=== PATIENT | female | born 1930 | race Caucasian/White ===

== ENCOUNTER 2017-06-03 20:50 | Emergency (ER) | payer MEDICARE, OTHER ==
[2017-06-03 21:18] VITALS: BMI 27.6
[2017-06-03 21:35] VITALS: TEMP 98.4
--- NOTE | 2017-06-03 21:46 | ED PDOC ---
Arrival/HPI - General Chief Complaint: Back Pain Time Seen by Provider: 06/03/17 21:13 Historian: Patient, Family (Translated) - History of Present Illness Narrative History of Present Illness (Text): 06/03/17 21:44 86 year old female, whose past medical history includes hypertension, hyperlipidemia, breast cancer s/p mastectomy, thyroidectomy, and GERD, presents to the emergency department complaining of right lower back pain radiating to the right buttocks that began last week and worsen today. Patient states that these pains occur every year and pain worsens when walking. Patient states to have dysuria, but denies any trauma, fever, chills, chest pain, shortness of breath, nausea, vomiting, diarrhea, neck pain, headache, dizziness, or any other complaints. PMD: Dr. Gomez Time/Duration: 1 week Symptom Onset: Gradual Symptom Course: Worsening Activities at Onset: Light Context: Home Past Medical History - Provider Review Nursing Documentation Reviewed: Yes - Infectious Disease Hx of Infectious Diseases: None - Tetanus Immunization Tetanus Immunization: >10 years Ago - Reproductive Menopause: Yes - Cardiac Hx Cardiac Disorders: Yes Hx Hypertension: Yes Hx Peripheral Edema: Yes - Renal Hx Kidney Stones: Yes - Endocrine/Metabolic Hx Hypothyroidism: Yes Other/Comment: thyroidectomy - Hematological/Oncological Hx Cancer: Yes (breast left mastectomy 1999) Hx Chemotherapy: Yes - Integumentary Other/Comment: right forearm redness warmth swelling - Musculoskeletal/Rheumatological Hx Arthritis: Yes Hx Falls: No - Gastrointestinal Hx Gastroesophageal Reflux: Yes - Psychiatric Hx Depression: No Hx Emotional Abuse: No Hx Physical Abuse: No Hx Substance Use: No - Surgical History Hx Cardiac Catheterization: Yes Hx Mastectomy: Yes (left) Hx Thyroidectomy: Yes - Anesthesia Hx Anesthesia: Yes Hx Anesthesia Reactions: No Hx Malignant Hyperthermia: No - Suicidal Assessment Feels Threatened In Home Enviroment: No Family/Social History - Physician Review Nursing Documentation Reviewed: Yes Family/Social History: No Known Family HX Smoking Status: Never Smoked Hx Alcohol Use: No Hx Substance Use: No Hx Substance Use Treatment: No Allergies/Home Meds Allergies/Adverse Reactions: Allergies No Known Allergies Allergy (Verified 02/23/12 17:46) Home Medications: Home Meds Medication Instructions Recorded Confirmed Aspirin [Aspir 81] 81 mg PO DAILY 02/23/12 02/15/16 Clopidogrel Bisulfate [Plavix] 75 mg PO DAILY 02/15/16 02/15/16 Fenofibrate [Tricor] 145 mg PO DAILY 02/15/16 02/15/16 Furosemide [Lasix] 40 mg PO DAILY 02/15/16 02/15/16 Levothyroxine Sodium [Unithroid] 88 mcg PO DAILY 02/15/16 02/15/16 Lisinopril/Hydrochlorothiazide 1 tab PO DAILY 02/15/16 02/15/16 [Lisinopril-Hctz 20-25 mg Tab] Propranolol [Inderal] 20 mg PO DAILY 02/15/16 02/15/16 Simvastatin 20 mg PO DAILY 02/15/16 02/15/16 amLODIPine [Norvasc] 10 mg PO DAILY 02/15/16 02/15/16 Review of Systems - Physician Review All systems were reviewed & negative as marked: Yes - Review of Systems Constitutional: absent: Fevers, Other (Chills) Respiratory: absent: SOB Cardiovascular: absent: Chest Pain Gastrointestinal: absent: Diarrhea, Nausea, Vomiting Genitourinary Female: Dysuria (Dysuria for a year). absent: Frequency, Hematuria Musculoskeletal: Back Pain (Right lower back pain radiating to the right buttocks). absent: Neck Pain Neurological: absent: Headache, Dizziness Physical Exam Vital Signs Reviewed: Yes Vital Signs Temp Pulse Resp BP Pulse Ox 06/03/17 21:32 98.4 F 65 18 171/79 H 97 Temperature: Afebrile Blood Pressure: Hypertensive Pulse: Regular Respiratory Rate: Normal Appearance: Positive for: Well-Appearing, Non-Toxic, Comfortable Pain Distress: None Mental Status: Positive for: Alert and Oriented X 3 - Systems Exam Head: Present: Atraumatic, Normocephalic Pupils: Present: PERRL Extroacular Muscles: Present: EOMI Conjunctiva: Present: Normal Mouth: Present: Moist Mucous Membranes Neck: Present: Normal Range of Motion, MIDLINE TENDERNESS Respiratory/Chest: Present: Clear to Auscultation, Good Air Exchange. No: Respiratory Distress, Accessory Muscle Use Cardiovascular: Present: Regular Rate and Rhythm, Normal S1, S2. No: Murmurs Abdomen: Present: Normal Bowel Sounds. No: Tenderness, Distention, Peritoneal Signs Back: Present: Pain with Leg Raise (+ Right straight leg raise), Other (Right buttocks tenderness ). No: Midline Tenderness, Paraspinal Tenderness Upper Extremity: Present: Normal Inspection. No: Cyanosis, Edema Lower Extremity: Present: Normal Inspection. No: Edema Neurological: Present: GCS=15, CN II-XII Intact, Speech Normal Skin: Present: Warm, Dry, Normal Color. No: Rashes Psychiatric: Present: Alert, Oriented x 3, Normal Insight, Normal Concentration Medical Decision Making ED Course and Treatment: 06/03/17 21:44 Impression: 86 year old female presents complaining of lower right back pain radiating to the right buttocks that began last week. Presentation consistent with sciatica but due to hx of renal colic will evaluate. Differential Diagnosis included but are not limited to: Plan: -- CT Abdomen and Pelvis -- Labs -- Toradol -- Valium -- Urinalysis -- Reassess and disposition Progress Notes: 06/03/17 22:26 EKG shows NSR at 68bpm with LBBB, unchanged from prior on 02/15/16 06/04/17 00:[address] Abdomen and Pelvis Without Intravenous Contrast 06/04/2017 12:32 AM Dictated and Authenticated by: Milagros Camacho MD FINDINGS: Probable left mastectomy although incompletely imaged. There is a 5 mm nodule in the right midlung. Recommend correlate with priors. Platelike atelectasis right lower lung. Cholelithiasis. Tiny hepatic calcification. Spleen and pancreas are grossly normal. Nonobstructing right renal calcification. No hydronephrosis or perinephric stranding. There is an 8 mm hypoattenuating left renal lesion probable cyst Thickened anterior wall of the urinary bladder at least partially due to under distention. Correlation with urinalysis may be helpful to exclude infectious/inflammatory process if clinically indicated. A normal appendix is identified axial images 120 through 130, coronal 53 through 57. Probable 2.2 cm right ovarian cyst. Similar finding described on prior report. Actual images are not provided. There are degenerative changes in the osseous structures with anterior osteophyte formation. There are atherosclerotic changes of the aorta. IMPRESSION: Thickened anterior wall urinary bladder as discussed above. UA negative for nitrates, leukocytes and wbc. Patient is neurologically intact and ambulating around the ED. - Lab Interpretations Lab Results: 06/03/17 22:10 06/03/17 22:10 Lab Results 06/03/17 23:00: Urine Color Yellow, Urine Appearance Clear, Urine pH 6.0, Ur Specific Omega 1.010, Urine Protein Negative, Urine Glucose (UA) Negative, Urine Ketones Negative, Urine Blood Trace-lysed H, Urine Nitrate Negative, Urine Bilirubin Negative, Urine Urobilinogen 0.2, Ur Leukocyte Esterase Negative , Urine RBC 0 - 2, Urine WBC 0 - 2, Ur Epithelial Cells 0 - 2 06/03/17 22:10: Sodium 138, Potassium 3.9, Chloride 104, Carbon Dioxide 23, Anion Gap 15, BUN 33 H, Creatinine 0.9, Est GFR ( Amer) > 60, Est GFR ( Non-Af Amer) 60, Random Glucose 100, Calcium 9.6, Total Bilirubin 0.4, AST 21, ALT 20, Alkaline Phosphatase 36 L, Total Protein 7.5, Albumin 4.2, Globulin 3.2 , Albumin/Globulin Ratio 1.3 06/03/17 22:10: WBC 7.7 D, RBC 3.64, Hgb 11.0 L, Hct 33.1 L, MCV 90.9, MCH 30.2 , MCHC 33.2, RDW 13.1, Plt Count 274, MPV 10.2, Gran % 50.4, Lymph % (Auto) 35.2 H, Page % (Auto) 8.9 H, Eos % (Auto) 5.0, Baso % (Auto) 0.5, Gran # 3.86, Lymph # 2.7, Page # 0.7 H, Eos # 0.4, Baso # 0.04 I have reviewed the lab results: Yes - RAD Interpretation Radiology Orders: 06/03/17 21:44 ABD & PELVIS W/O PO OR IV CONT [CT] Stat - Medication Orders Current Medication Orders: Discontinued Medications Diazepam (Valium) 5 mg PO STAT STA PRN Reason: Protocol Stop: 06/03/17 21:43 Last Admin: 06/03/17 22:15 Dose: 5 mg Ketorolac Tromethamine (Toradol) 30 mg IVP STAT STA Stop: 06/03/17 21:43 Last Admin: 06/03/17 22:15 Dose: 30 mg Re-Assess: DYLAN Pain Assessment Document 06/03/17 23:15 SC (Rec: 06/03/17 23:57 [place] [facility] [id number]) Pain Reassessment Is this a pain reassessment? Yes Sleep Is patient sleeping during reassessment? No Presence of Pain Presence of Pain Yes Pain Scale Used Pain Scale Used Numeric Description Description Intermittent Intensity of Pain at present 2 - Scribe Statement The provider has reviewed the documentation as recorded by the Fionaiburiel Morales All medical record entries made by the Fionaibe were at my direction and personally dictated by me. I have reviewed the chart and agree that the record accurately reflects my personal performance of the history, physical exam, medical decision making, and the department course for this patient. I have also personally directed, reviewed, and agree with the discharge instructions and disposition. Disposition/Present on Arrival - Present on Arrival Any Indicators Present on Arrival: No History of DVT/PE: No History of Uncontrolled Diabetes: No Urinary Catheter: No History of Decub. Ulcer: No History Surgical Site Infection Following: None - Disposition Have Diagnosis and Disposition been Completed?: Yes Diagnosis: Sciatica, Hematuria Disposition: HOME/ ROUTINE Disposition Time: 00:34 Patient Plan: Discharge Patient Problems: Current Active Problems Problem Status Onset Hematuria Acute Sciatica Acute Condition: GOOD Discharge Instructions (ExitCare): Sciatica (ED) Additional Instructions: Follow up with PMD within 2 days. Return to ED if condition worsens. Motrin for pain. Flexeril for severe pain. Prescriptions: Cyclobenzaprine [Flexeril] 5 mg PO TID PRN #20 tab PRN Reason: Pain, Mild (1-3) Referrals: PCP,NO [Primary Care Provider] - Follow up with primary Forms: [employer] (Macedonian)
[2017-06-03 22:31] LABS: BASO # 0.04 K/mm3 (0.0-2.0); BASO % 0.5 % (0.0-3.0); EOS # 0.4 (0.0-0.7); GRAN # 3.86 (1.4-6.5); GRAN % 50.4 % (50.0-68.0); HEMATOCRIT 33.1 % (36.0-48.0); LYMPH # 2.7 (1.2-3.4); LYMPH % 35.2 % (22.0-35.0); MEAN CELL VOLUME 90.9 fl (80.0-105.0); MEAN CORPUSCULAR HEMOGLOBIN 30.2 pg (25.0-35.0); MEAN CORPUSCULAR HGB CONC 33.2 g/dl (31.0-37.0); MEAN PLATELET VOLUME 10.2 fl (7.0-11.0); MONO # 0.7 (0.1-0.6); MONO % 8.9 % (1.0-6.0); RED CELL DISTRIBUTION WIDTH 13.1 % (11.5-14.5); WHITE BLOOD COUNT 7.7 10^3/ul (4.5-11.0)
[2017-06-03 22:54] LABS: ALB/GLOB RATIO 1.3 (1.1-1.8); ALKALINE PHOSPHATASE 36 U/L (38-133); ALT/SGPT 20 U/L (7-56); AST/SGOT 21 U/L (15-39); BILIRUBIN,TOTAL 0.4 mg/dL (0.2-1.3); BLOOD UREA NITROGEN 33 mg/dL (7-21); CALCIUM 9.6 mg/dL (8.4-10.5); CARBON DIOXIDE 23 mmol/L (21-33); CHLORIDE 104 mmol/L (95-110); GFR AFRICAN-AMERICAN > 60; GLUCOSE,RANDOM 100 mg/dL (70-110); POTASSIUM 3.9 mmol/L (3.6-5.0); SODIUM 138 mmol/L (132-148); TOTAL PROTEIN 7.5 g/dL (5.8-8.3)
[2017-06-03 23:35] LABS: URINE BILIRUBIN NEGATIVE (NEGATIVE); URINE BLOOD TRACE-LYSED (NEGATIVE); URINE GLUCOSE (UA) NEGATIVE (NEGATIVE); URINE KETONE NEGATIVE (NEGATIVE); URINE LEUKOCYTE ESTERASE NEGATIVE Leu/uL (NEGATIVE); URINE PROTEIN NEGATIVE mg/dL (<30 mg/dL); URINE UROBILINOGEN 0.2 E.U./dL (<1 E.U./dL)
[2017-06-03 23:48] LABS: URINE APPEARANCE CLEAR (CLEAR); URINE COLOR YELLOW (YELLOW)
[2017-06-03 23:55] LABS: URINE EPITHELIAL CELLS 0 - 2 /hpf (0-5); URINE RBC 0 - 2 /hpf (0-2); URINE WBC 0 - 2 /hpf (0-6)
--- NOTE | 2017-06-04 00:32 | CT ---
EXAM: CT Abdomen and Pelvis Without Intravenous Contrast EXAM DATE/TIME: 06/03/2017 9:44 PM CLINICAL HISTORY: 86 years old, female; Pain; Abdominal pain; Flank; Right; Additional info: R flank pain TECHNIQUE: Axial computed tomography images of the abdomen and pelvis without intravenous contrast. All CT scans at this facility use one or more dose reduction techniques, viz.: automated exposure control; ma/kV adjustment per patient size (including targeted exams where dose is matched to indication; i.e. head); or iterative reconstruction technique. Coronal and sagittal reformatted images were created and reviewed. COMPARISON: No relevant prior studies available. FINDINGS: Probable left mastectomy although incompletely imaged. There is a 5 mm nodule in the right midlung. Recommend correlate with priors. Platelike atelectasis right lower lung. Cholelithiasis. Tiny hepatic calcification. Spleen and pancreas are grossly normal. Nonobstructing right renal calcification. No hydronephrosis or perinephric stranding. There is an 8 mm hypoattenuating left renal lesion probable cyst. Thickened anterior wall of the urinary bladder at least partially due to under distention. Correlation with urinalysis may be helpful to exclude infectious/inflammatory process if clinically indicated. A normal appendix is identified axial images 120 through 130, coronal 53 through 57. Probable 2.2 cm right ovarian cyst. Similar finding described on prior report. Actual images are not provided. There are degenerative changes in the osseous structures with anterior osteophyte formation. There are atherosclerotic changes of the aorta. IMPRESSION: Thickened anterior wall urinary bladder as discussed above.
[2017-06-04 01:07] VITALS: BP 165/79; PULSE 79; RESP 16; O2SAT 99
--- NOTE | 2017-06-04 15:30 | CARD ---
APPROVED REPORT EKG Measurement Heart [id number] <Conclusion> Normal sinus rhythm Possible Left atrial enlargement Left bundle branch block Abnormal ECG
== END 2017-06-04 01:00 | disposition home or self-care (01) ==
LOC: ED 20:50
DX: M54.30 Sciatica, unspecified side (principal); R31.9 Hematuria, unspecified; I10 Essential (primary) hypertension; E78.5 Hyperlipidemia, unspecified
CPT/HCPCS: 74176; 80053; 81001; 85025; 93005; 96374; 99283; J1885

== ENCOUNTER 2019-02-08 20:22 | Inpatient (IN) | payer OTHER, MEDICARE | END 2019-02-10 15:49 | disposition home or self-care (01) | LOC: ERH 02-09 00:23 → 3RNO 02-09 01:00 → ED 20:22 → ERH 23:36 ==